=== PATIENT | male | born 1990 | race Caucasian/White ===

== ENCOUNTER 2017-03-12 07:23 | Emergency (ER) | payer BC ==
[2017-03-12 07:45] LABS: HEMOGLOBIN 16.4 gm/dl (14.0-17.5); RED BLOOD COUNT 5.48 M/UL (4.20-5.50); WHITE BLOOD COUNT 6.4 K/UL (4.5-11.0)
[2017-03-12 08:03] LABS: BUN/CREATININE RATIO 17 (0-10)
== END 2017-03-12 12:30 | disposition home or self-care (01) ==
LOC: ER1 07:23
PROVIDERS: Emergency Medicine
DX: R07.89 Other chest pain (principal); R94.5 Abnormal results of liver function studies; R06.02 Shortness of breath; R11.2 Nausea with vomiting, unspecified; Z88.8 Allergy status to other drugs, medicaments and biological substances; Z79.899 Other long term (current) drug therapy
CPT/HCPCS: 36415; 70450; 70496; 71010; 80053; 80307; 81001; 82150; 82550; 82553; 83690; 83874; 83880; 84484; 85025; 85610; 85730; 93005; 99285; J7050; Q9962

== ENCOUNTER → 2017-03-23 | Outpatient (CLI) | payer BC | LOC: ECHO 13:23 → NM 15:00 → ECHO 03-24 14:30 → NM 03-24 15:00 → ECHO 03-25 13:30 → NM 03-25 14:30 | DX: R07.9 Chest pain, unspecified (principal); R53.83 Other fatigue; R06.00 Dyspnea, unspecified | CPT/HCPCS: ECHO; 93017; 93306 ==